=== PATIENT | male | born 1970 | race Caucasian/White ===

== ENCOUNTER 2017-06-22 14:27 | Emergency (ER) | payer MEDICAID, OTHER ==
[2017-06-22 14:27] VITALS: BMI 23.0
--- NOTE | 2017-06-22 15:50 | C.PDOC ---
History Of Present Illness 47 y/o male presents to ED with complaints of productive cough and chest pain when coughing for 2 days with associated clear rhinorrhea. Patient states today cough became associated with yellow mucus production which prompted visit to ED. Patient denies fever, chills, nausea, vomiting, sob or any other complaints at this time. Time Seen by Provider: 06/22/17 15:21 Chief Complaint (Nursing): Cough, Cold, Congestion History Per: Patient History/Exam Limitations: no limitations Onset/Duration Of Symptoms: Days Current Symptoms Are (Timing): Still Present Associated Symptoms: Cough. denies: Fever, Chills Past Medical History Reviewed: Historical Data, Nursing Documentation, Vital Signs Vital Signs: Last Vital Signs Temp 98.9 F 06/22/17 18:25 Pulse 61 06/22/17 18:25 Resp 20 06/22/17 18:25 BP 138/74 06/22/17 18:25 Pulse Ox 97 06/22/17 18:25 - Medical History PMH: Hepatitis (C), Seizures (Secondary to etoh withdrawal.) Surgical History: No Surg Hx - [facility] Procedures DETOXIFICATION SERVICES FOR SUBSTANCE ABUSE TREATMENT (11/12/16) GROUP ACETONE BUTTON PASTER FOR SUBSTANCE ABUSE TREATMENT, PSYCHOEDUCATION (06/27/16) INDIV PSYCHOTHERAPY FOR SUBSTANCE ABUSE TREATMENT, SUPPORT (11/12/16) INDIV PSYCHOTHERAPY FOR SUBSTANCE ABUSE, COGNITIV BEHAVIORAL (11/12/16) INDIV PSYCHOTHERAPY FOR SUBSTANCE ABUSE, PSYCHOEDUCATION (11/12/16) MEDS MGMT FOR SUBSTANCE ABUSE TREATMENT, METHADONE MAINT (06/27/16) Family History: States: No Known Family Hx - Social History Hx Tobacco Use: Yes Hx Alcohol Use: Yes Hx Substance Use: Yes - Immunization History Hx Tetanus Toxoid Vaccination: No Hx Influenza Vaccination: No Hx Pneumococcal Vaccination: No Review Of Systems Except As Marked, All Systems Reviewed And Found Negative. Constitutional: Negative for: Fever, Chills ENT: Negative for: Ear Pain Cardiovascular: Positive for: Chest Pain (when coughing only). Negative for: Palpitations, Edema, Light Headedness Respiratory: Positive for: Cough. Negative for: SOB with Excertion, Wheezing Gastrointestinal: Negative for: Nausea, Vomiting, Abdominal Pain, Diarrhea, Constipation Musculoskeletal: Negative for: Neck Pain, Shoulder Pain, Back Pain Skin: Negative for: Rash Neurological: Negative for: Weakness, Numbness Physical Exam - Physical Exam Appears: Well, Non-toxic, No Acute Distress Skin: Warm, Dry, No Rash Head: Atraumatic, Normacephalic Eye(s): bilateral: Normal Inspection, PERRL, EOMI Ear(s): Bilateral: Normal Oral Mucosa: Moist Throat: Normal, No Erythema, No Exudate, No Drooling Neck: Supple Chest: Symmetrical Cardiovascular: Rhythm Regular Respiratory: Normal Breath Sounds, No Rales, No Rhonchi, No Wheezing Gastrointestinal/Abdominal: Soft, No Tenderness, No Guarding, No Rebound Back: Normal Inspection, No CVA Tenderness Extremity: Normal ROM, Capillary Refill (<2 seconds) Pulses: Left Radial: Normal, Right Radial: Normal Neurological/Psych: Oriented x3 Gait: Steady ED Course And Treatment O2 Sat by Pulse Oximetry: 96 (RA) Pulse Ox Interpretation: Normal Medical Decision Making Medical Decision Making: EKG shows NSR at 69bpm with normal intervals and no ST changes. Xray negative. Afebrile and well appearing. Will send home with cough medication Disposition - Disposition Disposition: HOME/ ROUTINE Disposition Time: 17:54 Condition: GOOD Additional Instructions: Follow-up with PMD within 2 days. Return to ED if condition worsens. Take full course of antibiotics. Cough drops as needed. Prescriptions: Azithromycin 250 mg PO DAILY #6 tablet Benzonatate [Tessalon Perles] 100 mg PO TID PRN #20 sgl PRN Reason: Cough Forms: [facility] (Tajik) - Clinical Impression Clinical Impression: Bronchitis - Scribe Statement The provider has reviewed the documentation as recorded by the Ibis Wyman All medical record entries made by the Ibis were at my direction and personally dictated by me. I have reviewed the chart and agree that the record accurately reflects my personal performance of the history, physical exam, medical decision making, and the department course for this patient. I have also personally directed, reviewed, and agree with the discharge instructions and disposition.
[2017-06-22 18:26] VITALS: BP 138/74; PULSE 61; RESP 20; TEMP 98.9
[2017-06-22 18:28] VITALS: O2SAT 96
--- NOTE | 2017-06-23 09:09 | RAD ---
HISTORY: cough, congestion COMPARISON: No prior. TECHNIQUE: Chest PA and lateral FINDINGS: LUNGS: No focal infiltrate or effusion. Minimal atelectatic changes at the lateral aspect of the left lung base. PLEURA: No significant pleural effusion identified. No pneumothorax apparent. CARDIOVASCULAR: Normal. OSSEOUS STRUCTURES: Degenerative changes in the spine with paravertebral osteophytes. VISUALIZED UPPER ABDOMEN: Normal. OTHER FINDINGS: None. IMPRESSION: No focal infiltrate or effusion. Minimal atelectatic changes at the lateral aspect of the left lung base.
--- NOTE | 2017-06-23 19:15 | CARD ---
APPROVED REPORT EKG Measurement Heart [id number] <Conclusion> Normal sinus rhythm Normal ECG
== END 2017-06-22 18:26 | disposition home or self-care (01) ==
LOC: C.ER 14:27
DX: J40 Bronchitis, not specified as acute or chronic (principal)

== ENCOUNTER 2018-03-03 09:27 | Emergency (ER) | payer MEDICAID ==
[2018-03-03 09:27] VITALS: BMI 23.0
[2018-03-03 09:43] VITALS: RESP 18; TEMP 98.5
[2018-03-03] MEDS ORDERED: Sodium Chloride 0.9% 1,000 ML ONE (10:18)
--- NOTE | 2018-03-03 10:30 | C.PDOC ---
History Of Present Illness 47 year old male patient with PMHx of opioid dependance presents to the ER with c/o epigastric abdominal pain starting at 3 am. Associated symptoms includes nausea and vomiting. Patient denies diarrhea, dysuria, hematuria, fever, chest pain, and SOB. Patient also notes he has been taking methadone for 7 years and is very compliant with it. Time Seen by Provider: 03/03/18 09:42 Chief Complaint (Nursing): GI Problem History Per: Patient History/Exam Limitations: no limitations Onset/Duration Of Symptoms: Hrs Current Symptoms Are (Timing): Still Present Location Of Pain/Discomfort: Epigastric Associated Symptoms: Nausea, Vomiting Past Medical History Reviewed: Historical Data, Nursing Documentation, Vital Signs Vital Signs: Last Vital Signs Temp 98.5 F 03/03/18 09:40 Pulse 70 03/03/18 09:40 Resp 18 03/03/18 09:40 BP 126/87 03/03/18 09:40 Pulse Ox 99 03/03/18 10:46 - Medical History PMH: Hepatitis (C), Seizures (Secondary to etoh withdrawal.) - [facility] Procedures DETOXIFICATION SERVICES FOR SUBSTANCE ABUSE TREATMENT (11/12/16) GROUP CLOTH CUTTING MACHINE OPERATOR FOR SUBSTANCE ABUSE TREATMENT, PSYCHOEDUCATION (06/27/16) INDIV PSYCHOTHERAPY FOR SUBSTANCE ABUSE TREATMENT, SUPPORT (11/12/16) INDIV PSYCHOTHERAPY FOR SUBSTANCE ABUSE, COGNITIV BEHAVIORAL (11/12/16) INDIV PSYCHOTHERAPY FOR SUBSTANCE ABUSE, PSYCHOEDUCATION (11/12/16) MEDS MGMT FOR SUBSTANCE ABUSE TREATMENT, METHADONE MAINT (06/27/16) Family History: States: Unknown Family Hx - Social History Hx Tobacco Use: Yes Hx Alcohol Use: No Hx Substance Use: Yes - Immunization History Hx Tetanus Toxoid Vaccination: No Hx Influenza Vaccination: No Hx Pneumococcal Vaccination: No Review Of Systems Constitutional: Negative for: Fever Cardiovascular: Negative for: Chest Pain Respiratory: Negative for: Shortness of Breath Gastrointestinal: Positive for: Nausea, Vomiting, Abdominal Pain (epigastric pain). Negative for: Diarrhea Genitourinary: Negative for: Dysuria, Hematuria Physical Exam - Physical Exam Appears: Non-toxic, In Acute Distress (mild) Skin: Normal Color, Warm, Dry Head: Atraumatic, Normacephalic Eye(s): bilateral: Normal Inspection Neck: Normal ROM, Supple Chest: Symmetrical, No Deformity Cardiovascular: Rhythm Regular Respiratory: Normal Breath Sounds Gastrointestinal/Abdominal: Soft, Tenderness (epigastric and RUQ tenderness), No Guarding, No Rebound, No Other ((-) Mcburney's) Back: No CVA Tenderness Extremity: Normal ROM (x4) Neurological/Psych: Oriented x3, Normal Speech, Normal Motor, Normal Sensation, Normal Reflexes Gait: Steady ED Course And Treatment - Laboratory Results Result Diagrams: 03/03/18 10:33 03/03/18 10:33 O2 Sat by Pulse Oximetry: 99 (RA) Pulse Ox Interpretation: Normal Progress Note: Impression: Epigastric abdominal pain. Plans: -- EKG. -- blood work. -- Pepcid 20mg. -- IV fluids. -- Zofran. -- UA. -- US abdomen. Reassess: Patient is resting comfortably, abdomen remains soft, and patient is tolerating PO. Patient is advised to f/u with PCP in 1-2 days. Disposition Counseled Patient/Family Regarding: Studies Performed, Diagnosis, Need For Followup, Rx Given - Disposition Referrals: [facility] [Outside] Disposition: HOME/ ROUTINE Disposition Time: 14:00 Condition: STABLE Additional Instructions: FOLLOW UP WITH YOUR DOCTOR/CLINIC IN 1-2 DAYS USE MEDICATION FOR NAUSEA NEEDED DRINK PLENTY OF CLEAR FLUIDS RETURN TO ER IF SYMPTOMS WORSEN Prescriptions: Famotidine [Pepcid] 20 mg PO BID PRN #15 tab PRN Reason: abdominal Ondansetron [Zofran Odt] 4 mg PO Q8 PRN #10 odt PRN Reason: Nausea/Vomiting Instructions: Nausea and Vomiting, Adult (DC) Forms: [employer] (Telugu) Print Language: LAO - Clinical Impression Clinical Impression: Abdominal pain, Nausea & vomiting, Methadone use - Scribe Statement The provider has reviewed the documentation as recorded by the Ibis Philip Do Provider Attestation: All medical record entries made by the Scribe were at my direction and personally dictated by me. I have reviewed the chart and agree that the record accurately reflects my personal performance of the history, physical exam, medical decision making, and the department course for this patient. I have also personally directed, reviewed, and agree with the discharge instructions and disposition.
[2018-03-03] MEDS: Sodium Chloride 0.9% 1,000 ML IV ONE (10:43)
[2018-03-03 10:46] LABS: BASO % 0.2 % (0.0-2.0); EOS % 0.1 % (0.0-4.0); HEMOGLOBIN 12.4 g/dL (12.0-18.0); LYMPH # 1.4 K/uL (1.0-4.3); LYMPH % 12.5 % (20.0-40.0); MEAN CELL VOLUME 97.1 fL (80.0-94.0); MEAN CORPUSCULAR HGB CONC 32.9 g/dL (33.0-37.0); MEAN PLATELET VOLUME 8.1 fL (7.2-11.7); MONO # 0.5 K/uL (0.0-0.8); NEUT # 9.4 K/uL (1.8-7.0); NEUT % 83.2 % (50.0-75.0); RBC 3.88 Mil/uL (4.40-5.90); RED CELL DISTRIBUTION WIDTH 13.9 % (11.5-14.5); WHITE BLOOD COUNT 11.3 K/uL (4.8-10.8)
[2018-03-03 10:59] LABS: CALCIUM 9.7 mg/dl (8.6-10.4); GFR AFRICAN-AMERICAN > 60; GFR NON-AFRICAN AMERICAN > 60; LIPASE 89 U/L (23-300)
[2018-03-03 11:00] LABS: ALB/GLOB RATIO 1.1 (1.0-2.1); ALBUMIN 4.6 g/dL (3.5-5.0); ALT/SGPT 16 U/L (21-72); AST/SGOT 48 U/L (17-59); BLOOD UREA NITROGEN 10 mg/dL (9-20)
--- NOTE | 2018-03-03 12:36 | US ---
Date of service: 03/03/2018 HISTORY: EPIGASTRIC, RUQ PAIN, R/O CHOLECYSTITIS COMPARISON: None. TECHNIQUE: Grayscale imaging was performed. FINDINGS: LIVER: Measures 13.4 cm in length. There is diffuse increased echogenicity of the liver parenchyma. No mass. No intrahepatic bile duct dilatation. GALLBLADDER: There are no gallstones, wall thickening or pericholecystic fluid. The sonographic Yu's sign is negative. COMMON BILE DUCT: Measures 3.9 mm. No stones. No dilatation. PANCREAS: Unremarkable as visualized. No mass. No ductal dilatation. RIGHT KIDNEY: Measures 8.8 cm in length. Normal echogenicity. No calculus, mass, or hydronephrosis. AORTA: No aneurysmal dilatation. IVC: Unremarkable. OTHER FINDINGS: None . IMPRESSION: Diffuse increased echogenicity in the liver may reflect hepatic steatosis however parenchymal infectious/ inflammatory etiologies cannot be entirely excluded. Clinical and laboratory correlation is advised. No cholelithiasis or biliary dilatation.
[2018-03-03 12:50] LABS: URINE AMORPHOUS SEDIMENT RARE /ul (<OCC); URINE BACTERIA RARE (<OCC); URINE BILIRUBIN NEGATIVE (NEGATIVE); URINE BLOOD NEGATIVE (NEGATIVE); URINE CLARITY Clear (Clear); URINE COLOR Yellow (YELLOW); URINE GLUCOSE (UA) NORMAL (Normal); URINE LEUKOCYTE ESTERASE TRACE Leu/uL (Negative); URINE PROTEIN NEGATIVE (NEGATIVE); URINE UROBILINOGEN NORMAL mg/dL (0.2-1.0)
[2018-03-03 13:03] LABS: BARBITURATES, UR NEGATIVE (NEGATIVE); BENZODIAZEPINES, UR NEGATIVE (NEGATIVE); OPIATES, UR NEGATIVE (NEGATIVE); PHENCYCLIDINE, UR NEGATIVE (NEGATIVE)
[2018-03-03 14:25] VITALS: BP 124/80; PULSE 76; O2SAT 97
== END 2018-03-03 14:24 | disposition home or self-care (01) ==
LOC: C.ER 09:27
DX: R10.13 Epigastric pain (principal); R11.2 Nausea with vomiting, unspecified; F11.90 Opioid use, unspecified, uncomplicated
CPT/HCPCS: 76705; 80053; 81001; 83690; 85025; 93005; 96361; 96374; 96375; 99284; G0480; J2405; J7030